=== PATIENT | male | born 2005 | race Caucasian/White ===

== ENCOUNTER 2024-03-21 11:27 | Emergency (ER) | payer OTHER ==
[2024-03-21 11:56] VITALS: BP 135/77; PULSE 80; RESP 18; TEMP 98.7; BMI 31.6
== END 2024-03-21 12:42 | disposition home or self-care (01) ==
LOC: JERFT 11:27
DX: J00 Acute nasopharyngitis [common cold] (principal); R50.9 Fever, unspecified; R09.81 Nasal congestion; Z20.822 Contact with and (suspected) exposure to COVID-19
CPT/HCPCS: 0241U-QW; 99283-25